=== PATIENT | female | born 1950 | race Caucasian/White ===

== ENCOUNTER 2020-01-14 06:48 | Emergency (ER) | payer MEDICARE, OTHER ==
[2020-01-14 07:15] LABS: Absolute Neutrophil Ct (ANC) 4.24 (1.4-6.9); BASOPHIL % 0.2 % (0.0-0.4); Basophil (Absolute #) 0.01 (0-0.4); Eosinophil % 2.3 % (0.00-5.0); Eosinophil (Absolute #) 0.13 (0-0.5); Hematocrit 43.1 % (35-47); Hemoglobin 14.2 gm/dl (12.0-16.0); Lymphocyte (Absolute #) 0.85 (1.0-4.6); Lymphocytes % 14.9 % (24.0-44.0); Mean Cell Volume 88.5 fl (78-100); Mean Corpuscular Hemoglobin 29.2 pg (26-32); Mean Corpuscular Hgb Concent. 32.9 g/dl (32-36); Mean Platelet Volume 10.3 fl (7.5-11.0); Monocyte (Absolute #) 0.47 (0.0-1.3); Monocytes % 8.2 % (0.0-12.0); Neutrophil % 74.4 % (36.0-66.0); Platelet Count 137 K/mm3 (150-450); Red Blood Count 4.87 M/mm3 (4.1-5.4); Red Cell Distribution Width 14.9 % (11.5-14.0); White Blood Count 5.7 K/mm3 (4.0-10.5)
--- NOTE | 2020-01-14 07:26 | ERPHSYRPT ---
- History of Present Illness Time Seen by Provider: 01/14/20 07:05 Historian: patient Exam Limitations: no limitations Patient Subjective Stated Complaint: Patient states " I have been having chest pain/indigestion since around 2 this am and it hasn't gotten any better". Triage Nursing Assessment: Patient arrived per self to ER. Patient A/O times 4. Patient able to answer questions appropriatley. Apical pulse strong and regular upon auscultation. Patient denies N/V. Patient states the pain after taking tums hasnt got any better. Patient denies any radiating pain into left arm/back/ shoulder. Patient denies SOB. Respiratory with no S/S of distress. Cap refill < 3 seconds. + BS times 4 quads. ABD soft round non-distended. Patient denies pain upon palpitation. Non-pitting edema noted to bilateral lower extremities. + pedal pulses noted to bilateral lower extremities. Patient states she did have 1 81MG ASA last night before going to bed. Patient denies dizziness. Patient denies H/A. Patient denies any jaw pain. Physician History: Patient is a 69-year-old female presents to our ED with complaints of substernal chest pain. Chest pain started approximately 2:00 this morning, 4 hours prior to arrival. Pain is well localized. No radiation. No specific worsening or improving factors. Patient states the pain progressively worsened throughout the morning and decided to come to our ED for evaluation. Patient otherwise healthy. Patient has no history of hypercholesterolemia. Patient is currently not on any sort of blood pressure or cholesterol medication. No associated nausea vomiting or diaphoresis. No trauma no fever. Symptoms are mild to moderate in intensity. No specific worsening or improving factors. Patient voices no other complaints at this time. Patient advises that she took an 81 mg aspirin yesterday. Patient is still experiencing chest discomfort at this time. Timing/Duration: today Activities at Onset: none Quality: aching Location: substernal Chest Pain Radiation: no radiation Severity of Pain-Max: moderate Severity of Pain-Current: mild Modifying Factors: Improves With: nothing Associated Symptoms: denies symptoms, No palpitations, No abdominal pain, No shortness of breath, No fever, No swelling/lump in chest, No syncope, No headache, No edema Prior Chest Pain/Cardiac Workup: no prior chest pain Aspirin Treatment Today: 81 mg x 1 Allergies/Adverse Reactions: No Known Drug Allergies Allergy (Unverified 01/14/20 07:05) Home Medications: Levothyroxine Sodium 75 mcg PO DAILY 05/08/16 [History] Aspirin [Aspirin EC] 81 mg PO 01/14/20 [History] Hx Tetanus, Diphtheria Vaccination/Date Given: No Hx Influenza Vaccination/Date Given: Yes Hx Pneumococcal Vaccination/Date Given: No Immunizations Up to Date: Yes Travel Risk - International Travel Have you traveled outside of the country in past 3 weeks: No Have you or anyone close to you been diagnosed with or: No Do your reside in a community with a known COVID-19 case?: Yes If Yes where:: [facility] - Coronavirus Screening Has patient experienced Coronavirus symptoms: No - Review of Systems Constitutional: No Fever, No Chills Eyes: No Symptoms Ears, Nose, & Throat: No Symptoms Respiratory: No Symptoms, No Cough, No Dyspnea Cardiac: No Symptoms, No Chest Pain, No Edema, No Syncope Abdominal/Gastrointestinal: No Symptoms, No Abdominal Pain, No Nausea, No Vomiting, No Diarrhea Genitourinary Symptoms: No Symptoms, No Dysuria Musculoskeletal: No Symptoms, No Back Pain, No Neck Pain Skin: No Symptoms, No Rash Neurological: No Symptoms, No Dizziness, No Focal Weakness, No Sensory Changes Psychological: No Symptoms Endocrine: No Symptoms Hematologic/Lymphatic: No Symptoms Immunological/Allergic: No Symptoms All Other Systems: Reviewed and Negative - Past Medical History Pertinent Past Medical History: Yes Neurological History: No Pertinent History ENT History: No Pertinent History Cardiac History: No Pertinent History Respiratory History: No Pertinent History Endocrine Medical History: Hypothyroidism Musculoskeletal History: No Pertinent History GI Medical History: No Pertinent History History: No Pertinent History Psycho-Social History: No Pertinent History Female Reproductive Disorders: No Pertinent History - Past Surgical History Past Surgical History: Yes Neuro Surgical History: No Pertinent History Cardiac: No Pertinent History Respiratory: No Pertinent History Gastrointestinal: No Pertinent History Genitourinary: No Pertinent History Musculoskeletal: Orthopedic Surgery Female Surgical History: No Pertinent History Other Surgical History: RIGHT KNEE - Social History Smoking Status: Former smoker Exposure to second hand smoke: Yes Drug Use: none Patient Lives Alone: Yes - Female History Hx Last Menstrual Period: POST - Nursing Vital Signs Nursing Vital Signs: Initial Vital Signs Temperature 98.0 F 01/14/20 06:53 Pulse Rate 86 01/14/20 06:53 Respiratory Rate 20 06/07/20 06:53 Blood Pressure 174/93 01/14/20 06:53 O2 Sat by Pulse Oximetry 97 01/14/20 06:53 Pain Scale Pain Intensity 2 - Physical Exam General Appearance: no apparent distress, alert Eye Exam: PERRL/EOMI, eyes nml inspection Ears, Nose, Throat Exam: normal ENT inspection, moist mucous membranes Neck Exam: normal inspection, non-tender, supple, full range of motion Respiratory Exam: normal breath sounds, lungs clear, No respiratory distress Cardiovascular Exam: regular rate/rhythm, normal heart sounds Gastrointestinal/Abdomen Exam: soft, No tenderness, No mass Pelvic Exam: not done Rectal Exam: deferred Back Exam: normal inspection, No CVA tenderness, No vertebral tenderness Extremity Exam: normal inspection, normal range of motion Neurologic Exam: alert, oriented x 3, cooperative, normal mood/affect, sensation nml, No motor deficits Skin Exam: normal color, warm, dry Lymphatic Exam: No adenopathy SpO2 Interpretation: normal SpO2: 94 O2 Delivery: Room Air - Course Nursing assessment & vital signs reviewed: Yes EKG Interpreted by Me: RATE (86), Sinus Rhythm, NORMAL AXIS, NORMAL INTERVALS - Radiology Exams Chest X-ray Interpretation: Teleradiologist Report (Heart is not enlarged, bony thorax intact, mild osteopenia and degenerative changes. None acute chest.) Ordered Tests: Active Orders 24 hr Category Date Time Status Family Support Specialist STAT Care 01/14/20 07:04 Active EKG-ER Only STAT Care 01/14/20 07:03 Active IV Insertion STAT Care 01/14/20 07:03 Active Isolation, Initiate & Maintain Q4H Care 01/14/20 07:05 Active Pulse Oximetry (ED) STAT Care 01/14/20 07:03 Active CHEST 1 VIEW (PORTABLE) Stat Exams 01/14/20 07:04 Completed CBC W DIFF Stat Lab 01/14/20 07:05 Completed CMP Stat Lab 01/14/20 07:05 Completed NT PRO BNP Stat Lab 01/14/20 07:05 Completed TROPONIN Q3H Lab 01/14/20 07:05 Completed TROPONIN Q3H Lab 01/14/20 10:15 Ordered TROPONIN Q3H Lab 01/14/20 13:15 Ordered TROPONIN Q3H Lab 01/14/20 16:15 Ordered TROPONIN Q3H Lab 01/14/20 19:15 Ordered UA W/RFX UR CULTURE Stat Lab 01/14/20 09:07 Ordered Medication Summary Discontinued Medications Generic Name Dose Route Start Last Admin Trade Name Radha JAIMES Reason Stop Dose Admin Aspirin 243 mg 01/14/20 07:40 01/14/20 07:52 Baby Aspirin 81 Mg Chew PO 01/14/20 07:41 243 mg STAT ONE Administration Aspirin Confirm 01/14/20 07:50 Baby Aspirin 81 Mg Chew Administered 01/14/20 07:51 Dose 324 mg .ROUTE .STK-MED ONE Nitroglycerin 1 gm 01/14/20 07:40 01/14/20 07:52 Nitro-Bid 2% Ud Packets TOP 01/14/20 07:41 1 gm STAT ONE Administration Nitroglycerin Confirm 01/14/20 07:50 Nitro-Bid 2% Ud Packets Administered 01/14/20 07:51 Dose 1 gm .ROUTE .STK-MED ONE Lab/Rad Data: Laboratory Result Diagrams 01/14/20 07:05 01/14/20 07:05 Laboratory Results 01/14/20 01/14/20 01/14/20 Range/Units 07:05 07:05 07:05 WBC 5.7 (4.0-10.5) K/mm3 RBC 4.87 (4.1-5.4) M/mm3 Hgb 14.2 (12.0-16.0) gm/dl Hct 43.1 (35-47) % MCV 88.5 (78-100) fl MCH 29.2 (26-32) pg MCHC 32.9 (32-36) g/dl RDW 14.9 H (11.5-14.0) % Plt Count 137 L (150-450) K/mm3 MPV 10.3 (7.5-11.0) fl Gran % 74.4 H (36.0-66.0) % Eos # (Auto) 0.13 (0-0.5) Absolute Lymphs (auto) 0.85 L (1.0-4.6) Absolute Monos (auto) 0.47 (0.0-1.3) Lymphocytes % 14.9 L (24.0-44.0) % Monocytes % 8.2 (0.0-12.0) % Eosinophils % 2.3 (0.00-5.0) % Basophils % 0.2 (0.0-0.4) % Absolute Granulocytes 4.24 (1.4-6.9) Basophils # 0.01 (0-0.4) Sodium 141 (137-145) mmol/L Potassium 3.8 (3.5-5.1) mmol/L Chloride 108 H (98-107) mmol/L Carbon Dioxide 24 (22-30) mmol/L Anion Gap 13.3 (5-15) MEQ/L BUN 15 (7-17) mg/dL Creatinine 0.56 (0.52-1.04) mg/dL Estimated GFR > 60.0 ML/MIN Glucose 116 H (74-106) mg/dL Calcium 10.3 H (8.4-10.2) mg/dL Total Bilirubin 1.70 H (0.2-1.3) mg/dL AST 132 H (14-36) U/L ALT 88 H (0-35) U/L Alkaline Phosphatase 361 H (38-126) U/L Troponin I < 0.012 (0.000-0.034) ng/mL NT-Pro-B Natriuret Pep 86.0 (0-900) pg/mL Serum Total Protein 7.9 (6.3-8.2) g/dL Albumin 4.0 (3.5-5.0) g/dL - Progress Progress: improved Air Movement: good Progress Note: 01/14/20 08:44 Patient reassessed. Patient has minimal substernal chest pain at this time. Physical exam otherwise unchanged. Chest x-ray negative for acute pathology. Initial troponin and BNP are within normal limits. EKG shows ST segment depression inferiorly up to 3 and aVF. In light of patient's age symptomology and abnormal EKG, further work-up is indicated. Case discussed with Dr. Baeza. 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 cast we will transfer to [facility] for further evaluation and treatment. Aspirin administered. Nitropaste applied. Discussed with Dr. Rodriguez, ER physician at [facility] who accepts transfer. Plan of care discussed with patient. She agrees to transfer to [facility] for further evaluation and treatment. Patient voices no other complaints concerns at this time. Patient updated her daughter with plan of care. 01/14/20 09:09 Blood Culture(s) Obtained: No Antibiotics given: No Discussed with : Fred Will see patient in: other (After discussing the case, Dr. Baeza felt patient would be better served at [facility] as her boiler fireman is on staff) Counseled pt/family regarding: lab results, diagnosis, rad results - Departure Departure Disposition: Transfer Clinical Impression: ACS (acute coronary syndrome), Chest pain, Abnormal EKG, Thrombocytopenia, Elevated liver enzymes Condition: Stable Critical Care Time: No Referrals: PEDRO STERLING [Primary Care Provider] -
[2020-01-14 07:41] LABS: ALKALINE PHOSPHATASE 361 U/L (38-126); ANION GAP 13.3 MEQ/L (5-15); BLOOD UREA NITROGEN 15 mg/dL (7-17); CHLORIDE 108 mmol/L (98-107); Calcium 10.3 mg/dL (8.4-10.2); Carbon Dioxide 24 mmol/L (22-30); Creatinine 1 0.56 mg/dL (0.52-1.04); Glucose 116 mg/dL (74-106); Potassium 3.8 mmol/L (3.5-5.1); SGOT/AST 132 U/L (14-36); SGPT/ALT 88 U/L (0-35); SODIUM 141 mmol/L (137-145); Total Protein 7.9 g/dL (6.3-8.2)
[2020-01-14] MEDS ORDERED: BABY ASPIRIN 81 MG CHEW ONE (07:50)
[2020-01-14] MEDS ORDERED: NITRO-BID 2% UD PACKETS ONE (07:50)
[2020-01-14] MEDS: NITRO-BID 2% UD PACKETS TOP ONE (07:52)
[2020-01-14] MEDS: BABY ASPIRIN 81 MG CHEW PO ONE (07:52)
--- NOTE | 2020-01-14 07:58 | XRAY ---
Indication: Chest pain. Comparison: March 23, 2017. Portable chest less inflated and remains clear. Heart is not enlarged. Bony thorax intact again with mild osteopenia and degenerative changes. Impression: Continued nonacute chest.
[2020-01-14 09:16] VITALS: BP 153/80; PULSE 75; O2SAT 96
[2020-01-14 09:35] LABS: Appearance CLEAR (CLEAR); Bilirubin NEGATIVE (NEGATIVE); Blood SMALL Ery/ul (0-5); Glucose NEGATIVE (NEGATIVE); Ketones NEGATIVE (NEGATIVE); Leukocyte Esterase NEGATIVE (NEGATIVE); Mucus SLIGHT /HPF (NEGATIVE); Nitrite NEGATIVE (NEGATIVE); Protein,Urine Dip NEGATIVE (Negative); Specific Gravity 1.009 (1.005-1.025); Urobilinogen NEGATIVE mg/dL (0-1); WBC 0-2 /HPF (0-5)
== END 2020-01-14 09:19 | disposition short-term general hospital (02) ==
LOC: ED 06:48
DX: I24.9 Acute ischemic heart disease, unspecified (principal); R07.9 Chest pain, unspecified; R94.31 Abnormal electrocardiogram [ECG] [EKG]; D69.6 Thrombocytopenia, unspecified; R74.8 Abnormal levels of other serum enzymes
CPT/HCPCS: 36000; 36415; 71045; 80053; 81001; 83880; 84484; 85025; 93005; 93041; 94760; 99285; A9270-GY

== ENCOUNTER 2020-05-15 12:17 | Emergency (ER) | payer MEDICARE, OTHER ==
[2020-05-15] MEDS ORDERED: NEOSYNEPHRINE 0.5% NASAL SPRAY/DROPS ONE (12:29)
[2020-05-15] MEDS ORDERED: ARZOL Silver Nitrate Applicator TP ONE ×2 (12:33→12:44)
[2020-05-15] MEDS ORDERED: NEOSYNEPHRINE 0.5% NASAL SPRAY/DROPS NS ONE (12:43)
--- NOTE | 2020-05-15 12:47 | ERPHSYRPT ---
- History of Present Illness Time Seen by Provider: 05/15/20 12:19 Source: patient Exam Limitations: no limitations Patient Subjective Stated Complaint: Pt states "My nose started to bleed this morning, it stopped and then started again." Triage Nursing Assessment: Pt presented alert and oriented X 3, skin pwd. PT right nostril bleeding,. Physician History: pt. reports that her right nostril started bleeding this am' - states she could not get it to stop - this is her first nose bleed - not on blood thinners -takes aspirin - has h/o cancer on chemo Timing/Duration: today Severity: mild Modifying Factors: Improves With: other Associated Symptoms: denies symptoms Allergies/Adverse Reactions: No Known Drug Allergies Allergy (Verified 05/15/20 12:40) Home Medications: Levothyroxine Sodium 75 mcg PO DAILY 05/08/16 [History] Aspirin [Aspirin EC] 81 mg PO DAILY 01/14/20 [History] Hx Tetanus, Diphtheria Vaccination/Date Given: Yes Hx Influenza Vaccination/Date Given: No Hx Pneumococcal Vaccination/Date Given: No Immunizations Up to Date: Yes Travel Risk - International Travel Have you traveled outside of the country in past 3 weeks: No - Coronavirus Screening Are you exhibiting any of the following symptoms?: No Close contact with a COVID-19 positive Pt in past 14-21 Days: No - Review of Systems Constitutional: No Symptoms Eyes: No Symptoms Ears, Nose, & Throat: Epistaxis, No Nose Congestion, No Throat Pain, No Painful Swallowing Respiratory: No Symptoms Cardiac: No Symptoms Abdominal/Gastrointestinal: No Symptoms Genitourinary Symptoms: No Symptoms Musculoskeletal: No Symptoms Skin: No Symptoms Neurological: No Symptoms Psychological: No Symptoms Endocrine: No Symptoms All Other Systems: Reviewed and Negative - Past Medical History Pertinent Past Medical History: Yes Neurological History: No Pertinent History ENT History: No Pertinent History Cardiac History: No Pertinent History Respiratory History: No Pertinent History Endocrine Medical History: Hypothyroidism Musculoskeletal History: No Pertinent History GI Medical History: No Pertinent History History: No Pertinent History Psycho-Social History: No Pertinent History Female Reproductive Disorders: No Pertinent History - Past Surgical History Past Surgical History: Yes Neuro Surgical History: No Pertinent History Cardiac: No Pertinent History Respiratory: No Pertinent History Gastrointestinal: No Pertinent History Genitourinary: No Pertinent History Musculoskeletal: Orthopedic Surgery Female Surgical History: No Pertinent History Other Surgical History: RIGHT KNEE - Social History Smoking Status: Former smoker Exposure to second hand smoke: Yes Drug Use: none Patient Lives Alone: No - Female History Hx Now: No - Nursing Vital Signs Nursing Vital Signs: Initial Vital Signs Temperature 98.4 F 05/15/20 12:23 Pulse Rate 98 H 05/15/20 12:23 Respiratory Rate 20 05/15/20 12:23 Blood Pressure 144/73 05/15/20 12:23 O2 Sat by Pulse Oximetry 98 05/15/20 12:23 Pain Scale Pain Intensity 0 - Physical Exam General Appearance: no apparent distress Eye Exam: PERRL/EOMI, eyes nml inspection Ears, Nose, Throat Exam: normal ENT inspection, TMs normal, pharynx normal, other (_ anterior and posterior nasal bleeding from right nostril.) Neck Exam: normal inspection, non-tender, supple Respiratory Exam: normal breath sounds, lungs clear Cardiovascular Exam: regular rate/rhythm, normal heart sounds Gastrointestinal/Abdomen Exam: soft, normal bowel sounds Back Exam: normal inspection Extremity Exam: normal inspection Neurologic Exam: alert, oriented x 3, cooperative Skin Exam: normal color Lymphatic Exam: adenopathy SpO2 Interpretation: normal SpO2: 98 O2 Delivery: Room Air Ordered Tests: Active Orders 24 hr Category Date Time Status CBC W DIFF Stat Lab 05/15/20 12:57 Completed Medication Summary Discontinued Medications Generic Name Dose Route Start Last Admin Trade Name Radha PRN Reason Stop Dose Admin Phenylephrine HCl Confirm 05/15/20 12:29 Neosynephrine 0.5% Nasal [place]/Drops Administered 05/15/20 12:30 Dose 15 ml .ROUTE .STK-MED ONE Phenylephrine HCl 15 ml 05/15/20 12:43 05/15/20 12:57 Neosynephrine 0.5% Nasal [place]/Drops NS 05/15/20 12:44 15 ml STAT ONE Administration Silver Nitrate Confirm 05/15/20 12:33 Arzol Silver Nitrate Applicator Administered 05/15/20 12:34 Dose 1 pkt TP .STK-MED ONE Silver Nitrate 1 pkt 05/15/20 12:44 05/15/20 12:57 Arzol Silver Nitrate Applicator TP 05/15/20 12:45 1 pkt ONCE ONE Administration Lab/Rad Data: Laboratory Result Diagrams 05/15/20 12:57 Laboratory Results 05/15/20 Range/Units 12:57 WBC 6.1 (4.0-10.5) K/mm3 RBC 4.75 (4.1-5.4) M/mm3 Hgb 13.0 (12.0-16.0) gm/dl Hct 40.6 (35-47) % MCV 85.5 (78-100) fl MCH 27.4 (26-32) pg MCHC 32.0 (32-36) g/dl RDW 21.0 H (11.5-14.0) % Plt Count 192 (150-450) K/mm3 MPV 10.2 (7.5-11.0) fl Gran % 75.9 H (36.0-66.0) % Eos # (Auto) 0.14 (0-0.5) Absolute Lymphs (auto) 0.74 L (1.0-4.6) Absolute Monos (auto) 0.56 (0.0-1.3) Lymphocytes % 12.2 L (24.0-44.0) % Monocytes % 9.3 (0.0-12.0) % Eosinophils % 2.3 (0.00-5.0) % Basophils % 0.3 (0.0-0.4) % Absolute Granulocytes 4.59 (1.4-6.9) Basophils # 0.02 (0-0.4) - Progress Progress Note: 05/15/20 13:36 pt. here for bleeding from right nsotril - has 2 spots of bleeding from anterior nares- cauterized with 1 silver nitrate stick. + psoterior nasal bleed evident after removal of clot- posterior nasal packing done - pt. observed for 1.30 hrs- no furtehr bleed - cbc today shows stable Hb of 13. - f/u arranged with ENT tomorrow at - Pt. will e placed on augementin for the duration of nasal packing. - Departure Departure Disposition: Home Clinical Impression: Epistaxis Condition: Stable Critical Care Time: No Referrals: PEDRO STERLING [Primary Care Provider] - Additional Instructions: Discharge/Care Plan ABDIASSHRUTHI LOW was seen on 05/15/20 in the Emergency Room. The patient was counseled regarding Diagnosis,Lab results, Imaging studies, need for follow up and when to return to the Emergency Room. Prescriptions given: Discharge Note I have spoken with the patient and/or caregivers. I have explained the patient's condition, diagnosis and treatment plan based on the information available to me at this time. I have answered the patient's and/or caregiver's questions and addressed any concerns. The patient and/or caregivers have as good understanding of the patient's diagnosis, condition and treatment plan as can be expected at this point. The vital signs have been stable. The patient's condition is stable and appropriate for discharge from the emergency department. The patient will pursue further outpatient evaluation with the primary care physician or other designated or consulting physician as outlined in the discharge instructions. The patient and/or caregivers are agreeable to this plan of care and follow-up instructions have been explained in detail. The patient and/or caregivers have received these instruction. The patient/and or caregivers are aware that any significant change in condition or worsening of symptoms should prompt an immediate return to this or the closest emergency department or call 911. Prescriptions: Amoxicillin/Potassium Clav [Augmentin 500-125 Tablet] 1 each PO BID 7 Days #14 tablet
[2020-05-15 12:59] LABS: Absolute Neutrophil Ct (ANC) 4.59 (1.4-6.9); BASOPHIL % 0.3 % (0.0-0.4); Basophil (Absolute #) 0.02 (0-0.4); Eosinophil % 2.3 % (0.00-5.0); Eosinophil (Absolute #) 0.14 (0-0.5); Hematocrit 40.6 % (35-47); Lymphocyte (Absolute #) 0.74 (1.0-4.6); Lymphocytes % 12.2 % (24.0-44.0); Mean Cell Volume 85.5 fl (78-100); Mean Corpuscular Hemoglobin 27.4 pg (26-32); Mean Platelet Volume 10.2 fl (7.5-11.0); Monocyte (Absolute #) 0.56 (0.0-1.3); Monocytes % 9.3 % (0.0-12.0); Neutrophil % 75.9 % (36.0-66.0); Platelet Count 192 K/mm3 (150-450); Red Blood Count 4.75 M/mm3 (4.1-5.4); White Blood Count 6.1 K/mm3 (4.0-10.5)
[2020-05-15 13:28] VITALS: BP 198/74; PULSE 76
[2020-05-15 13:39] VITALS: O2SAT 98
== END 2020-05-15 13:48 | disposition home or self-care (01) ==
LOC: ED 12:17
DX: R04.0 Epistaxis (principal); Z85.9 Personal history of malignant neoplasm, unspecified; Z79.899 Other long term (current) drug therapy
CPT/HCPCS: 36415; 85025; 99283; A9270-GY

== ENCOUNTER 2020-05-17 09:05 | Emergency (ER) | payer MEDICARE, OTHER ==
--- NOTE | 2020-05-17 09:43 | ERPHSYRPT ---
- History of Present Illness Time Seen by Provider: 05/17/20 09:25 Source: patient Exam Limitations: no limitations Patient Subjective Stated Complaint: fall couple days ago, needing nose plug removed Triage Nursing Assessment: pt to ED states she needs nose plug removed, was in ED 2 days ago for fall and had it placed. was supposed to f/u in [place] to get plug removed but states "thats just really far." pt has had recent family issues that she needs to go out of state soon, but needs plug removed prior to leaving. denies pain in nose currently. Physician History: This is a 69-year-old white female who fell and hit her nose which caused epistaxis of the right nostril. She required a Rhino Rocket to provide nasal hemostasis. She was scheduled to see an supervisor nuclear medicine today at 930. Apparently, the patient called and canceled her 930 appointment this morning and expected the emergency department to remove the Rhino Rocket. The patient states that she has to leave to go to [place] because there was a in her family. There is no active bleeding at this time. The patient is on oral antibiotics. ENT Location: nose Prearrival Treatment: nasal packing (By the emergency department 2 days ago) Modifying Factors: Improves With: nothing Associated Symptoms: denies symptoms, epistaxis Allergies/Adverse Reactions: No Known Drug Allergies Allergy (Verified 05/17/20 09:18) Home Medications: Levothyroxine Sodium 75 mcg PO DAILY 05/08/16 [History] Aspirin [Aspirin EC] 81 mg PO DAILY 01/14/20 [History] Amlodipine Besylate 10 mg PO DAILY 05/17/20 [History] Hx Tetanus, Diphtheria Vaccination/Date Given: Yes Hx Influenza Vaccination/Date Given: No Hx Pneumococcal Vaccination/Date Given: No Travel Risk - International Travel Have you traveled outside of the country in past 3 weeks: No - Coronavirus Screening Are you exhibiting any of the following symptoms?: No Close contact with a COVID-19 positive Pt in past 14-21 Days: No - Review of Systems Constitutional: No Symptoms Eyes: No Symptoms Ears, Nose, & Throat: Epistaxis (Which has ceased with the Rhino Rocket packing- right nostril.) Respiratory: No Symptoms Cardiac: No Symptoms Abdominal/Gastrointestinal: No Symptoms Genitourinary Symptoms: No Symptoms Musculoskeletal: No Symptoms Skin: No Symptoms Neurological: No Symptoms Psychological: No Symptoms Endocrine: No Symptoms Hematologic/Lymphatic: No Symptoms Immunological/Allergic: No Symptoms All Other Systems: Reviewed and Negative - Past Medical History Pertinent Past Medical History: Yes Neurological History: No Pertinent History ENT History: No Pertinent History Cardiac History: Hypertension Respiratory History: No Pertinent History Endocrine Medical History: Hypothyroidism Musculoskeletal History: No Pertinent History GI Medical History: No Pertinent History History: No Pertinent History Psycho-Social History: No Pertinent History Female Reproductive Disorders: No Pertinent History - Past Surgical History Past Surgical History: Yes Neuro Surgical History: No Pertinent History Cardiac: No Pertinent History Respiratory: No Pertinent History Gastrointestinal: No Pertinent History Genitourinary: No Pertinent History Musculoskeletal: Orthopedic Surgery Female Surgical History: No Pertinent History Other Surgical History: RIGHT KNEE - Social History Smoking Status: Former smoker Exposure to second hand smoke: Yes Drug Use: none Patient Lives Alone: Yes - Female History Hx Now: No - Nursing Vital Signs Nursing Vital Signs: Initial Vital Signs Temperature 97.7 F 05/17/20 09:12 Pulse Rate 91 H 05/17/20 09:12 Respiratory Rate 18 05/17/20 09:12 Blood Pressure 140/73 05/17/20 09:12 O2 Sat by Pulse Oximetry 99 05/17/20 09:12 Pain Scale Pain Intensity 0 - Physical Exam General Appearance: no apparent distress, alert, anxiety Eye Exam: bilateral eye: normal inspection, PERRL, EOMI Nasal Exam: foreign body (Patient has right nostril Rhino Rocket in place), No active bleeding (. No active bleeding present) Throat Exam: normal Neck Exam: normal inspection, non-tender, supple, full range of motion, trachea midline Cardiovascular/Respiratory Exam: chest non-tender Abdominal Exam: non-tender Neurologic Exam: alert, oriented x 3, cooperative, consulting property manager II-XII nml as tested, normal mood/affect, nml cerebellar function, nml station & gait, sensation nml Skin Exam: normal color, warm, dry SpO2 Interpretation: normal SpO2: 99 O2 Delivery: Room Air - Course Nursing assessment & vital signs reviewed: Yes - Progress Progress: unchanged Progress Note: 05/17/20 09:44 This patient has a Rhino Rocket in place in the right nostril. She is on antibi otic therapy. Patient did not make us aware that she had an appointment made for her to see ENT specialist today at 930. We attempted to make an appointment and found out that she actually canceled her appointment and plan to come to the emergency department for removal of the Rhino Rocket. I explained to her that I can take it out but there may be bleeding present and I would have to replace the right Rhino Rocket if bleeding occurs. In addition, there may not be bleeding initially but bleeding may recur in a few hours. Patient is planning on leaving this morning to drive to [place] to deal with in the family. I explained the rationale for having the Rhino Rocket remain in place until it is evaluated and removed by ENT specialist in their office. Patient has decided to keep the Rhino Rocket in place, continue her oral antibiotic therapy and drive to [facility] and have it removed there. Counseled pt/family regarding: diagnosis, need for follow-up - Departure Departure Disposition: Home Clinical Impression: Encounter for medical screening examination, Epistaxis due to trauma Condition: Stable Critical Care Time: No Referrals: PEDRO STERLING [Primary Care Provider] - Additional Instructions: Continue your antibiotic therapy. Follow-up with ENT specialist for evaluation prior to and following Rhino Rocket removal.
[2020-05-17 10:41] VITALS: BP 135/76; PULSE 94; O2SAT 98
== END 2020-05-17 10:00 | disposition home or self-care (01) ==
LOC: ED 09:05
DX: Z48.00 Encounter for change or removal of nonsurgical wound dressing (principal)
CPT/HCPCS: 99283